=== PATIENT | male | born 1990 | race Caucasian/White ===

== ENCOUNTER 2019-12-08 14:21 | Inpatient (IN) | payer BC ==
[2019-12-08 15:17] LABS: Basophils # (A) 0.1 k/uL (0-0.2); Basophils % (A) 1 %; Eosinophils # (A) 0.5 k/uL (0-0.7); Eosinophils % (A) 5 %; HCT 48.6 % (39.0-53.0); HGB 16.2 gm/dL (13.0-17.5); Lymphocytes # (A) 2.3 k/uL (1.0-4.8); Lymphocytes % (A) 22 %; MCH 29.4 pg (25.0-35.0); MCHC 33.4 g/dL (31.0-37.0); MCV 88.1 fL (80.0-100.0); Mean Platelet Volume 7.9; Monocytes # (A) 0.6 k/uL (0-1.0); Monocytes % (A) 6 %; Neutrophils # (A) 6.7 k/uL (1.3-7.7); Neutrophils % (A) 66 %; Platelet Count 251 k/uL (150-450); RBC 5.52 m/uL (4.30-5.90); RDW 13.6 % (11.5-15.5); WBC 10.2 k/uL (3.8-10.6)
[2019-12-08 15:21] LABS: ALT 57 U/L (4-49); AST 53 U/L (17-59); African American GFR (CKD) >90 (>60 ml/min/1.73 sqM); Albumin 4.3 g/dL (3.5-5.0); Alkaline Phosphatase 48 U/L (38-126); Anion Gap 3 mmol/L; Blood Urea Nitrogen 16 mg/dL (9-20); C Reactive Protein 13.8 mg/L (<10.0); Calcium 9.4 mg/dL (8.4-10.2); Carbon Dioxide 24 mmol/L (22-30); Chloride 106 mmol/L (98-107); Glucose 99 mg/dL (74-99); LDH 756 U/L (313-618); Magnesium 1.9 mg/dL (1.6-2.3); Non-African American GFR(CKD) >90 (>60 ml/min/1.73 sqM); Potassium 4.3 mmol/L (3.5-5.1); Sodium 133 mmol/L (137-145); Total Bilirubin 1.1 mg/dL (0.2-1.3); Total Protein 7.1 g/dL (6.3-8.2)
[2019-12-08 15:28] LABS: INR 1.1 (<1.2); Partial Thromboplastin Time 22.8 sec (22.0-30.0); Prothrombin Time 10.9 sec (9.0-12.0)
[2019-12-08 15:34] LABS: D-Dimer 4.77 mg/L FEU (<0.60)
--- NOTE | 2019-12-08 15:39 | XR ---
EXAMINATION TYPE: XR chest 1V portable DATE OF EXAM: 12/08/2019 Comparison: 02/03/2016 Clinical History: 29-year-old male shortness of breath, Suspected COVID-19 pneumonia Findings: New mild to moderate cardiomegaly. There may be some accentuation due to AP portable technique. Mild interstitial change throughout. Limitation due to underpenetration from large patient body habitus. Impression: 1. New mild to moderate cardiomegaly. Heart size may be slightly accentuated due to AP portable techn ique. Further evaluation with cardiac echo should be considered. 2. Mild generalized interstitial change. Limited assessment due to underpenetration. Correlate to exc lude mild pulmonary vascular congestion or atypical pneumonia.
[2019-12-08] MEDS ORDERED: LABETALOL 5 MG/ML VIAL MDV IVP STA ×2 (15:45→17:06)
--- NOTE | 2019-12-08 16:26 | ED ---
SOB HPI - General Source: patient Mode of arrival: ambulatory Limitations: no limitations <Verónica Vail - Last Filed: 12/09/19 07:08> <Dunia Aguilar - Last Filed: 12/12/19 23:59> - General Chief Complaint: Shortness of Breath Stated Complaint: SOB Time Seen by Provider: 12/08/19 15:00 - History of Present Illness Initial Comments: Patient is a 29-year-old male, morbidly obese, uncontrolled hypertension, pr esenting to the emergency Department from urgent care via EMS for shortness of breath as well as a cough 2 weeks. Patient states he has issue with ALLERGIES and normally has an upper respiratory infection this time of the year. Patient denies having fever, chest pains. He states he has had a few vomiting episodes after coughing fits. He denies any nausea or abdominal pain at this time. Patient states he used to be on hypertensive medication a few years ago but stopped taking after he lost his insurance. He states he also used to take medication for anxiety. Patient does admit to being a one pack-a-day smoker as well as marijuana smoker. No other drug use. He has no other complaints at this time. Upon arrival to the ER, patient is afebrile, pulse is 124, blood pressure is 187/141, 95% on room air, 20 respiratory. (Verónica Vail) - Related Data Home Medications Medication Instructions Recorded Confirmed guaiFENesin [Mucinex] 1,200 mg PO Q12HR PRN 12/08/19 12/08/19 Previous Rx's Medication Instructions Recorded Furosemide [Lasix] 40 mg PO DAILY #30 tab 12/12/19 Hydrochlorothiazide [Hydrodiuril] 25 mg PO DAILY #30 tab 12/12/19 Isosorbide Mononitrate ER [Imdur] 60 mg PO DAILY #30 tab.er.24h 12/12/19 Levothyroxine Sodium [Synthroid] 75 mcg PO DAILY@0630 #30 tab 12/12/19 Losartan [Cozaar] 100 mg PO DAILY #60 tab 12/12/19 Metoprolol Tartrate [Lopressor] 100 mg PO BID #120 tab 12/12/19 Nicotine 14Mg/24Hr Patch [Habitrol] 1 patch TRANSDERM DAILY #30 patch 12/12/19 hydrALAZINE HCL [Apresoline] 100 mg PO TID #180 tab 12/12/19 Allergies Allergy/AdvReac Type Severity Reaction Status Date / Time No Known Allergies Allergy Verified 12/08/19 17:42 Review of Systems ROS Other: All systems not noted in ROS Statement are negative. <Verónica Vail - Last Filed: 12/09/19 07:08> ROS Other: All systems not noted in ROS Statement are negative. <Dunia Aguilar Sabina - Last Filed: 12/12/19 23:59> ROS Statement: Those systems with pertinent positive or pertinent negative responses have been documented in the HPI. Past Medical History Past Medical History: Hypertension History of Any Multi-Drug Resistant Organisms: None Reported Past Surgical History: No Surgical Hx Reported Past Psychological History: No Psychological Hx Reported Smoking Status: Current every day smoker Past Alcohol Use History: Occasional Past Drug Use History: None Reported - Past Family History Father Family Medical History: AICD/Pacemaker <Verónica Vail - Last Filed: 12/09/19 07:08> General Exam Limitations: no limitations <Verónica Vail - Last Filed: 12/09/19 07:08> - General Exam Comments Initial Comments: GENERAL: Morbidly obese, in no acute distress, mildly diaphoretic. HEAD: Atraumatic, normocephalic. EYES: Pupils equal round and reactive to light, extraocular movements intact, sclera anicteric, conjunctiva are normal. ENT: TMs normal, nares patent, oropharynx clear without exudates. Moist mucous membranes. NECK: Normal range of motion, supple without lymphadenopathy or JVD. LUNGS: Breath sounds clear to auscultation bilaterally and equal. No wheezes rales or rhonchi. HEART: Tachycardia rate and rhythm without murmurs, rubs or gallops. ABDOMEN: Soft, nontender, normoactive bowel sounds. No guarding, no rebound. No masses appreciated. : Deferred EXTREMITIES: Normal range of motion, no pitting or edema. No clubbing or cyanosis. NEUROLOGICAL: Cranial nerves II through XII grossly intact. Normal speech, normal gait. PSYCH: Normal mood, normal affect. SKIN: Warm, Dry, normal turgor, no rashes or lesions noted. (Verónica Vail) Course Vital Signs 12/08/19 12/08/19 12/08/19 14:38 14:42 16:23 Temperature 98.7 F Pulse Rate 124 H 110 H Respiratory 20 20 18 Rate Blood Pressure 187/141 165/132 O2 Sat by Pulse 95 95 Oximetry 12/08/19 12/08/19 12/08/19 16:47 18:05 18:54 Temperature Pulse Rate 101 H 97 102 H Respiratory 18 18 18 Rate Blood Pressure 158/113 160/116 145/100 O2 Sat by Pulse 95 94 L 94 L Oximetry 12/08/19 12/08/19 19:38 22:10 Temperature Pulse Rate 98 92 Respiratory 22 20 Rate Blood Pressure 155/112 144/107 O2 Sat by Pulse 95 95 Oximetry Procedures <Dunia Aguilar - Last Filed: 12/12/19 23:59> - Procedures Initial comment: Bedside cardiac ultrasound using cardiac probe in parasternal long axis and peristernal short axis demonstrates pericardial effusion, moderate without signs of tamponade. EF is severely reduced. (Dunia Aguilar) Medical Decision Making - Lab Data Result diagrams: 12/08/19 14:37 12/08/19 14:37 <Verónica Vail - Last Filed: 12/09/19 07:08> - Lab Data Result diagrams: 12/09/19 06:36 12/12/19 06:05 <Dunia Aguilar - Last Filed: 12/12/19 23:59> - Medical Decision Making Patient is a 29-year-old male presenting via EMS from urgent care for shortness of breath and tachycardia. He has history of uncontrolled hypertension, morbidly obese. Upon arrival to the ER he was tachycardic, hypertensive, mildly diaphoretic. EKG showed no signs of acute ischemia, tachycardia. He denied chest pain. Lab work reveals a d-dimer 4.77. Sodium 133, LDH was 756, CRP is 13, rapid Cochran as well as influenza were both negative. BNP is 5920. Troponin was elevated at 1.980. Given patient's positive d-dimer and tachycardia, CTA for PE was ordered. This reveals a large pericardial effusion, minimal right pleural effusion, groundglass opacities in the posterior right lung base. No evidence for acute PE. Case was discussed in detail with Dr. Aguilar. Dr. Aguilar spoke with nutrition specialist cardiothoracic, Dr. De Los Santos. Patient will be admitted and will have echo performed tomorrow. Patient was given single dose of 20 mg labetalol for blood pressure control. Patient's blood pressure did decrease slightly to 158/113, heart rate is 101. Patient has been comfortable in the room. He will be given first dose of azithromycin with concern for possible COVID even though rapid testing was negative today. Cardio and infectious disease will both be consulted. Patient was accepted by on-call, Dr. Collins. (Verónica Vail) I was available for consultation in the emergency department. The history and physical exam were done by the midlevel provider. [facility] I reviewed the case with the midlevel provider and based on their presentation of the patient, I agree with the assessment, medical decision making and plan of care as documented. The patient was evaluated by myself. Presented with shortness of breath and tachycardia from an urgent care. I performed a bedside cardiac ultrasound which demonstrated a moderate sized effusion without signs of tamponade. I discussed the results with Dr. De Los Santos who requested a formal echo. Trop elevated however will hold off on heparinizing the patient due to his pericardial effusion. I discussed the case with Dr. Valentine who accepted admission. Chart was dictated using [employer] dictation software. Attempts were made to correct any dictation errors however some typographical errors may persist. Patient was seen during a national state of emergency due to the Covid-19 pandemic. (Dunia Aguilar) - Lab Data Lab Results 12/08/19 12/08/19 12/08/19 Range/Units 14:37 14:37 14:37 WBC 10.2 (3.8-10.6) k/uL RBC 5.52 (4.30-5.90) m/uL Hgb 16.2 (13.0-17.5) gm/dL Hct 48.6 (39.0-53.0) % MCV 88.1 (80.0-100.0) fL MCH 29.4 (25.0-35.0) pg MCHC 33.4 (31.0-37.0) g/dL RDW 13.6 (11.5-15.5) % Plt Count 251 (150-450) k/uL Neutrophils % 66 % Lymphocytes % 22 % Monocytes % 6 % Eosinophils % 5 % Basophils % 1 % Neutrophils # 6.7 (1.3-7.7) k/uL Lymphocytes # 2.3 (1.0-4.8) k/uL Monocytes # 0.6 (0-1.0) k/uL Eosinophils # 0.5 (0-0.7) k/uL Basophils # 0.1 (0-0.2) k/uL PT 10.9 (9.0-12.0) sec INR 1.1 (<1.2) APTT 22.8 (22.0-30.0) sec D-Dimer 4.77 H (<0.60) mg/L FEU Sodium 133 L (137-145) mmol/L Potassium 4.3 (3.5-5.1) mmol/L Chloride 106 (98-107) mmol/L Carbon Dioxide 24 (22-30) mmol/L Anion Gap 3 mmol/L BUN 16 (9-20) mg/dL Creatinine 0.87 (0.66-1.25) mg/dL Est GFR (CKD-EPI)AfAm >90 (>60 ml/min/1.73 sqM) Est GFR (CKD-EPI)NonAf >90 (>60 ml/min/1.73 sqM) Glucose 99 (74-99) mg/dL Estimated Ave Glu mg/dL Hemoglobin A1c (4.0-6.0) % Plasma Lactic Acid Ángel (0.7-2.0) mmol/L Calcium 9.4 (8.4-10.2) mg/dL Magnesium 1.9 (1.6-2.3) mg/dL Ferritin 145.7 (22.0-322.0) ng/mL Total Bilirubin 1.1 (0.2-1.3) mg/dL AST 53 (17-59) U/L ALT 57 H (4-49) U/L Alkaline Phosphatase 48 (38-126) U/L Lactate Dehydrogenase 756 H (313-618) U/L Troponin I (0.000-0.034) ng/mL C-Reactive Protein 13.8 H (<10.0) mg/L NT-Pro-B Natriuret Pep pg/mL Total Protein 7.1 (6.3-8.2) g/dL Albumin 4.3 (3.5-5.0) g/dL Procalcitonin (0.02-0.09) ng/mL Coronavirus (PCR) (Not Detectd) Influenza Type A RNA (Not Detectd) Influenza Type B (PCR) (Not Detectd) 12/08/19 12/08/19 12/08/19 Range/Units 14:37 14:37 14:37 WBC (3.8-10.6) k/uL RBC (4.30-5.90) m/uL Hgb (13.0-17.5) gm/dL Hct (39.0-53.0) % MCV (80.0-100.0) fL MCH (25.0-35.0) pg MCHC (31.0-37.0) g/dL RDW (11.5-15.5) % Plt Count (150-450) k/uL Neutrophils % % Lymphocytes % % Monocytes % % Eosinophils % % Basophils % % Neutrophils # (1.3-7.7) k/uL Lymphocytes # (1.0-4.8) k/uL Monocytes # (0-1.0) k/uL Eosinophils # (0-0.7) k/uL Basophils # (0-0.2) k/uL PT (9.0-12.0) sec INR (<1.2) APTT (22.0-30.0) sec D-Dimer (<0.60) mg/L FEU Sodium (137-145) mmol/L Potassium (3.5-5.1) mmol/L Chloride (98-107) mmol/L Carbon Dioxide (22-30) mmol/L Anion Gap mmol/L BUN (9-20) mg/dL Creatinine (0.66-1.25) mg/dL Est GFR (CKD-EPI)AfAm (>60 ml/min/1.73 sqM) Est GFR (CKD-EPI)NonAf (>60 ml/min/1.73 sqM) Glucose (74-99) mg/dL Estimated Ave Glu mg/dL 103 Hemoglobin A1c 5.2 (4.0-6.0) % Plasma Lactic Acid Ángel 1.2 (0.7-2.0) mmol/L Calcium (8.4-10.2) mg/dL Magnesium (1.6-2.3) mg/dL Ferritin (22.0-322.0) ng/mL Total Bilirubin (0.2-1.3) mg/dL AST (17-59) U/L ALT (4-49) U/L Alkaline Phosphatase (38-126) U/L Lactate Dehydrogenase (313-618) U/L Troponin I (0.000-0.034) ng/mL C-Reactive Protein (<10.0) mg/L NT-Pro-B Natriuret Pep pg/mL Total Protein (6.3-8.2) g/dL Albumin (3.5-5.0) g/dL Procalcitonin 0.07 (0.02-0.09) ng/mL Coronavirus (PCR) (Not Detectd) Influenza Type A RNA (Not Detectd) Influenza Type B (PCR) (Not Detectd) 12/08/19 12/08/19 12/08/19 Range/Units 15:01 15:01 17:31 WBC (3.8-10.6) k/uL RBC (4.30-5.90) m/uL Hgb (13.0-17.5) gm/dL Hct (39.0-53.0) % MCV (80.0-100.0) fL MCH (25.0-35.0) pg MCHC (31.0-37.0) g/dL RDW (11.5-15.5) % Plt Count (150-450) k/uL Neutrophils % % Lymphocytes % % Monocytes % % Eosinophils % % Basophils % % Neutrophils # (1.3-7.7) k/uL Lymphocytes # (1.0-4.8) k/uL Monocytes # (0-1.0) k/uL Eosinophils # (0-0.7) k/uL Basophils # (0-0.2) k/uL PT (9.0-12.0) sec INR (<1.2) APTT (22.0-30.0) sec D-Dimer (<0.60) mg/L FEU Sodium (137-145) mmol/L Potassium (3.5-5.1) mmol/L Chloride (98-107) mmol/L Carbon Dioxide (22-30) mmol/L Anion Gap mmol/L BUN (9-20) mg/dL Creatinine (0.66-1.25) mg/dL Est GFR (CKD-EPI)AfAm (>60 ml/min/1.73 sqM) Est GFR (CKD-EPI)NonAf (>60 ml/min/1.73 sqM) Glucose (74-99) mg/dL Estimated Ave Glu mg/dL Hemoglobin A1c (4.0-6.0) % Plasma Lactic Acid Ángel (0.7-2.0) mmol/L Calcium (8.4-10.2) mg/dL Magnesium (1.6-2.3) mg/dL Ferritin (22.0-322.0) ng/mL Total Bilirubin (0.2-1.3) mg/dL AST (17-59) U/L ALT (4-49) U/L Alkaline Phosphatase (38-126) U/L Lactate Dehydrogenase (313-618) U/L Troponin I (0.000-0.034) ng/mL C-Reactive Protein (<10.0) mg/L NT-Pro-B Natriuret Pep 5920 pg/mL Total Protein (6.3-8.2) g/dL Albumin (3.5-5.0) g/dL Procalcitonin (0.02-0.09) ng/mL Coronavirus (PCR) Not Detected (Not Detectd) Influenza Type A RNA Not Detected (Not Detectd) Influenza Type B (PCR) Not Detected (Not Detectd) 12/08/19 Range/Units 17:45 WBC (3.8-10.6) k/uL RBC (4.30-5.90) m/uL Hgb (13.0-17.5) gm/dL Hct (39.0-53.0) % MCV (80.0-100.0) fL MCH (25.0-35.0) pg MCHC (31.0-37.0) g/dL RDW (11.5-15.5) % Plt Count (150-450) k/uL Neutrophils % % Lymphocytes % % Monocytes % % Eosinophils % % Basophils % % Neutrophils # (1.3-7.7) k/uL Lymphocytes # (1.0-4.8) k/uL Monocytes # (0-1.0) k/uL Eosinophils # (0-0.7) k/uL Basophils # (0-0.2) k/uL PT (9.0-12.0) sec INR (<1.2) APTT (22.0-30.0) sec D-Dimer (<0.60) mg/L FEU Sodium (137-145) mmol/L Potassium (3.5-5.1) mmol/L Chloride (98-107) mmol/L Carbon Dioxide (22-30) mmol/L Anion Gap mmol/L BUN (9-20) mg/dL Creatinine (0.66-1.25) mg/dL Est GFR (CKD-EPI)AfAm (>60 ml/min/1.73 sqM) Est GFR (CKD-EPI)NonAf (>60 ml/min/1.73 sqM) Glucose (74-99) mg/dL Estimated Ave Glu mg/dL Hemoglobin A1c (4.0-6.0) % Plasma Lactic Acid Ángel (0.7-2.0) mmol/L Calcium (8.4-10.2) mg/dL Magnesium (1.6-2.3) mg/dL Ferritin (22.0-322.0) ng/mL Total Bilirubin (0.2-1.3) mg/dL AST (17-59) U/L ALT (4-49) U/L Alkaline Phosphatase (38-126) U/L Lactate Dehydrogenase (313-618) U/L Troponin I 1.980 H* (0.000-0.034) ng/mL C-Reactive Protein (<10.0) mg/L NT-Pro-B Natriuret Pep pg/mL Total Protein (6.3-8.2) g/dL Albumin (3.5-5.0) g/dL Procalcitonin (0.02-0.09) ng/mL Coronavirus (PCR) (Not Detectd) Influenza Type A RNA (Not Detectd) Influenza Type B (PCR) (Not Detectd) - EKG Data EKG Comments: Ventricular rate 119, CT interval 136, and QTc 481, sinus tach, no acute ST segment changes, no signs of ischemia. (Verónica Vail) Disposition Is patient prescribed a controlled substance at d/c from ED?: No Decision Date: 12/08/19 Decision Time: 17:38 <Verónica Vail - Last Filed: 12/09/19 07:08> <Dunia Aguilar - Last Filed: 12/12/19 23:59> Clinical Impression: Dyspnea, Pericardial effusion, Elevated troponin Disposition: ADMITTED IP TO THIS HOSP Condition: Stable
--- NOTE | 2019-12-08 16:48 | CT ---
CT CHEST FOR PULMONARY EMBOLISM. EXAMINATION TYPE: CT chest angio for PE DATE OF EXAM: 12/08/2019 INDICATION: Shortness of breath and HTN. CT DLP: 1242.3 mGycm, Automated exposure control for dose reduction was used. CONTRAST: Patient injected with 100 mL of Isovue 300. COMPARISON: None TECHNIQUE: CT of the chest is performed on a spiral scan at 2 mm thick sections. Study is performed with intravenous contrast timed for evaluation for pulmonary embolism. This will limit additional po rtions of the evaluation. 3-D MIP images reconstructed by the technologist are reviewed on the compu ter in the coronal and sagittal planes. FINDINGS: No persistent filling defects are evident to suggest an acute pulmonary embolism. Shotty lymphadenopathy is within the mediastinum. The ascending aorta diameter at the level of the m ain pulmonary artery is 4.0 cm. The main pulmonary artery diameter at the bifurcation is 3.7 cm. There is a large pericardial effusion. Some minimal groundglass opacities are at the lung bases within the lingula near the costophrenic ang le and in the posterior right lung base. Very small right pleural effusion is present Limited CT section through the upper abdomen are unremarkable. IMPRESSIONS: 1. Large pericardial effusion. 2. Minimal right pleural effusion. 3. Minimal groundglass opacities at the lateral lingula and posterior right lung base. 4. No acute pulmonary embolism.
[2019-12-08] MEDS ORDERED: AZITHROMYCIN 500 MG TAB PO STA (17:43)
[2019-12-09 04:08] LABS: Hemoglobin A1C 5.2 % (4.0-6.0)
[2019-12-09 04:20] LABS: Ferritin 145.7 ng/mL (22.0-322.0)
[2019-12-09] MEDS ORDERED: amLODIPine 5 MG TAB PO STA (05:26)
[2019-12-09 08:01] LABS: ALT 53 U/L (4-49); AST 36 U/L (17-59); African American GFR (CKD) >90 (>60 ml/min/1.73 sqM); Alkaline Phosphatase 43 U/L (38-126); Anion Gap 10 mmol/L; Blood Urea Nitrogen 15 mg/dL (9-20); Calcium 9.3 mg/dL (8.4-10.2); Carbon Dioxide 22 mmol/L (22-30); Chloride 106 mmol/L (98-107); Cholesterol 94 mg/dL (<200); Glucose 83 mg/dL (74-99); HDL Cholesterol 23 mg/dL (40-60); LDL Cholesterol,Calculated 56 mg/dL (0-99); Non-African American GFR(CKD) >90 (>60 ml/min/1.73 sqM); Potassium 4.6 mmol/L (3.5-5.1); Sodium 138 mmol/L (137-145); Total Bilirubin 1.1 mg/dL (0.2-1.3); Total Protein 6.6 g/dL (6.3-8.2); Triglycerides 74 mg/dL (<150)
[2019-12-09 08:04] LABS: Basophils % (A) 0 %; Eosinophils # (A) 0.3 k/uL (0-0.7); Eosinophils % (A) 4 %; HCT 46.5 % (39.0-53.0); HGB 15.3 gm/dL (13.0-17.5); Lymphocytes # (A) 2.2 k/uL (1.0-4.8); Lymphocytes % (A) 29 %; MCH 29.3 pg (25.0-35.0); MCHC 32.8 g/dL (31.0-37.0); MCV 89.3 fL (80.0-100.0); Mean Platelet Volume 8.4; Monocytes # (A) 0.4 k/uL (0-1.0); Monocytes % (A) 6 %; Neutrophils # (A) 4.5 k/uL (1.3-7.7); Neutrophils % (A) 60 %; Platelet Count 245 k/uL (150-450); RBC 5.21 m/uL (4.30-5.90); RDW 13.8 % (11.5-15.5); WBC 7.5 k/uL (3.8-10.6)
--- NOTE | 2019-12-09 08:47 | ECHOF ---
Referral Reason:dyspnea, pericardial effusion MEASUREMENTS -------- HEIGHT: 193.0 cm WEIGHT: 219.1 kg BP: 164/102 RVIDd: 4.6 cm (< 3.3) IVSd: 1.1 cm (0.6 - 1.1) LVIDd: 7.4 cm (3.9 - 5.3) LVPWd: 1.4 cm (0.6 - 1.1) IVSs: 1.2 cm LVIDs: 6.5 cm LVPWs: 1.8 cm LAESV Index (A-L): 47.79 ml/m Ao Diam: 3.7 cm (2.0 - 3.7) AV Cusp: 2.7 cm (1.5 - 2.6) MV EXCURSION: 17.180 mm (> 18.000) MV EF SLOPE: 87 mm/s (70 - 150) EPSS: 2.3 cm FINDINGS -------- Sinus rhythm. This was a technically difficult study with suboptimal views. The left ventricle is severely dilated. There is mild concentric left ventricular hypertrophy. Th ere is severe global hypokinesis of LV . Overall left ventricular systolic function is severely imp aired with, an EF between 20 - 25 %. The right ventricle is moderate to severely enlarged. The right ventricular systolic function is m oderately impaired. LA is severely dilated >40 ml/m2 The right atrium was not well visualized. 5.0mg of Lumason was utilized for enhancement of images The aortic valve was not well visualized. There is no evidence of aortic regurgitation. There is no evidence of aortic stenosis. [id number] mitral regurgitation is present. Mild tricuspid regurgitation present. Unable to estimate RVSP due to inadequate TR jet spectral dop pler profile. The pulmonic valve was not well visualized. There is no pulmonic regurgitation present. The aortic root size is normal. The inferior vena cava is moderately dilated. There is a moderate, generalized pericardial effusion present. There is no evidence of cardiac tamp onade. CONCLUSIONS -------- 1. The left ventricle is severely dilated. 2. There is mild concentric left ventricular hypertrophy. 3. There is severe global hypokinesis of LV . 4. Overall left ventricular systolic function is severely impaired with, an EF between 20 - 25 %. 5. The right ventricle is moderate to severely enlarged. 6. The right ventricular systolic function is moderately impaired. 7. LA is severely dilated >40 ml/m2 8. The right atrium was not well visualized. 9. 5.0mg of Lumason was utilized for enhancement of images 10. The aortic valve was not well visualized. 11. [id number] mitral regurgitation is present. 12. Mild tricuspid regurgitation present. 13. The inferior vena cava is moderately dilated. 14. There is a moderate, generalized pericardial effusion present. 15. There is no evidence of cardiac tamponade. [employer]: Angeles Maguire RDCS
[2019-12-09] MEDS ORDERED: ASPIRIN 325 MG TAB PO SCH (09:00)
[2019-12-09] MEDS: METOPROLOL TARTRATE 50 MG TAB PO SCH ×2 (09:08→22:11)
[2019-12-09] MEDS: LOSARTAN 50 MG TAB PO SCH ×2 (09:08→09:30)
[2019-12-09] MEDS: HEPARIN SODIUM,PORCINE 5,000 UNIT/ML 1 ML VIAL SQ SCH (09:08)
[2019-12-09] MEDS: FUROSEMIDE 40 MG TAB PO SCH (09:08)
[2019-12-09] MEDS: hydrALAZINE HCL 50 MG TAB PO SCH ×3 (09:08→22:11)
[2019-12-09] MEDS: amLODIPine 5 MG TAB PO SCH ×2 (09:08→09:09)
--- NOTE | 2019-12-09 09:10 | P.GSCN ---
History of Present Illness Consult date: 12/09/19 Reason for Consult: Large pericardial effusion on CAT scan Requesting physician: Verónica Vail History of present illness: This is a 29-year-old active gentleman who does not follow with a primary care physician on an outpatient basis. He has a previous medical history of hypertension, morbid obesity, current tobacco dependence, occasional marijuana use, family history of premature coronary artery disease. He was previously on anti-hypertensives but lost his health insurance and quit taking his medications. He presented to [facility] emergency room last night with complaints of shortness of breath and loose productive cough for approximately 2 weeks. Denies any fever, nausea, vomiting, chest pain. He does endorse occasional dizziness. He states he did take some Mucinex, he had a coughing fit and subsequently felt a little bit better. His father was concerned for Covid however, and he presented to [facility]. He was found to be hypertensive and sent to [facility] emergency room for further evaluation and treatment. Chest x-ray demonstrated new cardiomegaly, mild interstitial changes. Labs were essentially normal except d-dimer 4.77, ALT 57, troponins 1.98 trending down to 1.33, and BNP 5920. Procalcitonin was negative. Rapid coronavirus PCR was sent and was negative. Chest CTA was completed demonstrating no PE but large pericardial effusion was read by the radiologist. The patient was admitted for evaluation and treatment with consultation placed for Dr. De Los Santos from cardiothoracic surgery, cardiology, and infectious disease. An echocardiogram was ordered. Review of Systems Review of systems was completed and was negative except as noted. - Respiratory Reports as per HPI, Reports congestion, Reports cough, Reports cough with sputum, Reports dyspnea Past Medical History Past Medical History: Hypertension Additional Past Medical History / Comment(s): Morbid obesity History of Any Multi-Drug Resistant Organisms: None Reported Past Surgical History: No Surgical Hx Reported Past Psychological History: No Psychological Hx Reported Additional Psychological History / Comment(s): smokes 1 pk/day since 15 years old, uses marijuana once weekly Smoking Status: Current every day smoker Past Alcohol Use History: None Reported Past Drug Use History: Marijuana - Past Family History Father Family Medical History: AICD/Pacemaker, Myocardial Infarction ([place]) Additional Family Medical History / Comment(s): father had [place] at 49 years old Mother Family Medical History: No Reported History Additional Family Medical History / Comment(s): patient unsure of his mothers history Medications and Allergies Home Medications Medication Instructions Recorded Confirmed Type guaiFENesin [Mucinex] 1,200 mg PO Q12HR PRN 12/08/19 12/08/19 History Allergies Allergy/AdvReac Type Severity Reaction Status Date / Time No Known Allergies Allergy Verified 12/08/19 17:42 Surgical - Exam Vital Signs Temp Pulse Resp BP Pulse Ox 98.7 F 124 H 20 187/141 95 12/08/19 14:38 12/08/19 14:38 12/08/19 14:38 12/08/19 14:38 12/08/19 14:38 - General well developed, well nourished, no distress, no pain, obese - Eyes PERRL, normal ocular movement - ENT no hearing loss - Neck no masses, no bruits, trachea midline - Respiratory Lung sounds diminished bilaterally. Respirations even, non-labored. Currently on room air with oxygen saturation 95%. - Cardiovascular S1/S2 present, no murmur, no distant heart tones. Tachycardic but regular rate and rhythm, sinus tach on telemetry with rate in low 100s. Palpable pulses peripherally. No edema present. No calf pain or tenderness noted. - Abdomen Abdomen: soft, non tender, bowel sounds - Genitourinary deferred - Rectum deferred - Integumentary multiple tattoos on upper extremities no rash, no growths - Neurologic normal coordination, normal sensation - Musculoskeletal normal gait, normal posture - Psychiatric oriented to time, oriented to person, oriented to place, speech is normal, memory intact Results - Labs 12/09/19 06:36 12/09/19 06:36 Abnormal Lab Results - Last 24 Hours (Table) 12/08/19 12/08/19 12/08/19 Range/Units 14:37 14:37 17:45 D-Dimer 4.77 H (<0.60) mg/L FEU Sodium 133 L (137-145) mmol/L ALT 57 H (4-49) U/L Lactate Dehydrogenase 756 H (313-618) U/L Troponin I 1.980 H* (0.000-0.034) ng/mL C-Reactive Protein 13.8 H (<10.0) mg/L HDL Cholesterol (40-60) mg/dL 12/08/19 12/09/19 12/09/19 Range/Units 23:21 06:36 06:36 D-Dimer 3.17 H (<0.60) mg/L FEU Sodium (137-145) mmol/L ALT 53 H (4-49) U/L Lactate Dehydrogenase (313-618) U/L Troponin I 1.330 H* (0.000-0.034) ng/mL C-Reactive Protein (<10.0) mg/L HDL Cholesterol 23 L (40-60) mg/dL Diabetes panel 12/08/19 12/08/19 12/09/19 Range/Units 14:37 14:37 06:36 Sodium 133 L 138 (137-145) mmol/L Potassium 4.3 4.6 (3.5-5.1) mmol/L Chloride 106 106 (98-107) mmol/L Carbon Dioxide 24 22 (22-30) mmol/L BUN 16 15 (9-20) mg/dL Creatinine 0.87 0.83 (0.66-1.25) mg/dL Glucose 99 83 (74-99) mg/dL Hemoglobin A1c 5.2 (4.0-6.0) % Calcium 9.4 9.3 (8.4-10.2) mg/dL AST 53 36 (17-59) U/L ALT 57 H 53 H (4-49) U/L Alkaline Phosphatase 48 43 (38-126) U/L Total Protein 7.1 6.6 (6.3-8.2) g/dL Albumin 4.3 4.0 (3.5-5.0) g/dL Triglycerides 74 (<150) mg/dL HDL Cholesterol 23 L (40-60) mg/dL Calcium panel 12/08/19 12/09/19 Range/Units 14:37 06:36 Calcium 9.4 9.3 (8.4-10.2) mg/dL Albumin 4.3 4.0 (3.5-5.0) g/dL Pituitary panel 12/08/19 12/09/19 Range/Units 14:37 06:36 Sodium 133 L 138 (137-145) mmol/L Potassium 4.3 4.6 (3.5-5.1) mmol/L Chloride 106 106 (98-107) mmol/L Carbon Dioxide 24 22 (22-30) mmol/L BUN 16 15 (9-20) mg/dL Creatinine 0.87 0.83 (0.66-1.25) mg/dL Glucose 99 83 (74-99) mg/dL Calcium 9.4 9.3 (8.4-10.2) mg/dL Adrenal panel 12/08/19 12/09/19 Range/Units 14:37 06:36 Sodium 133 L 138 (137-145) mmol/L Potassium 4.3 4.6 (3.5-5.1) mmol/L Chloride 106 106 (98-107) mmol/L Carbon Dioxide 24 22 (22-30) mmol/L BUN 16 15 (9-20) mg/dL Creatinine 0.87 0.83 (0.66-1.25) mg/dL Glucose 99 83 (74-99) mg/dL Calcium 9.4 9.3 (8.4-10.2) mg/dL Total Bilirubin 1.1 1.1 (0.2-1.3) mg/dL AST 53 36 (17-59) U/L ALT 57 H 53 H (4-49) U/L Alkaline Phosphatase 48 43 (38-126) U/L Total Protein 7.1 6.6 (6.3-8.2) g/dL Albumin 4.3 4.0 (3.5-5.0) g/dL - Imaging Chest x-ray: report reviewed, image reviewed CT scan - chest: report reviewed, image reviewed EKG: image reviewed Assessment and Plan Assessment: 1. Large pericardial effusion on CT scan 2. Hypertension 3. Current tobacco dependence 4. Morbid obesity 5. Family history of premature CAD Plan: The patient was seen and examined at the bedside. Chart/diagnostics were reviewed. The case was discussed in detail with Dr. De Los Santos. At this time we wait for echocardiogram results to determine treatment. Dr. Martinez will be here today to see patient and review echocardiogram. The patient is in no distress, he is not hypotensive and barely tachycardic, suggesting no compromise from effusion. Recommend controlling blood pressure. Medical management of other comorbidities per primary care and cardiology. Thank you for this consult. Please call us with further questions. Time with Patient: Greater than 30
--- NOTE | 2019-12-09 09:39 | CONS ---
CONSULTATION Roland Duffy is a 29-year-old morbidly obese gentleman who was admitted through the emergency room yesterday. He came in because of shortness of breath, upper respiratory tract type infection with coughing bouts and when he presented to the ER, he had uncontrolled hypertension. He is known to have hypertension, but has not taken any medications. He smokes one pack a day. He uses marijuana. He last saw a doctor over a year ago when he was hospitalized in [facility] and was told that he had a problem with his heart with inflammation. He was also advised he had hypertension and to follow up but he has never seen a physician because of insurance reasons. After he came into the emergency room, his pressure was quite elevated. His D-dimer was elevated. He went on to have a CT angio which did not reveal pulmonary embolism but instead revealed what was reported as a large pericardial effusion. He also had some ground-glass appearance in the lateral lingula as well. I was asked to see him mostly because of his pericardial effusion. At the time of my evaluation, patient is sitting down. He is about 220 kg on an average. His BMI is more than 58. He has a troponin that is up to 1.9, now it is coming down to 1.3. His BNP is nearly 6000. His D-dimer is 3.17. He indicates to me that he was short of breath and coughing and therefore he came to the hospital. He is fully aware of the fact he has hypertension has not taken medications. He smokes at least a pack a day and also has been using marijuana and also alcohol occasionally. At the time of my evaluation, he is not in any significant distress. PAST MEDICAL HISTORY: 1. The patient tells me that he was hospitalized in [place], [place] with what seems to be some inflammation of the heart. Details unavailable. 2. Hypertension. He knows he has hypertension but has not taken medications for insurance reasons. 3. Smoking and COPD. 4. Morbid obesity. 5. Probable sleep apnea syndrome without established diagnosis. MEDICATIONS: He takes a Mucinex occasionally orally. ALLERGIES: None. REVIEW OF SYSTEMS: Remarkable for exertional shortness of breath, snoring, palpitations. No syncope. No chest discomfort. Progressively increasing shortness of breath and some weight gain. PHYSICAL EXAMINATION: On examination, blood pressure is 160/100, pulse rate is 104 per minute. HEENT: Unremarkable. Fundus was not examined by me. Neck is supple. There is JVD of at least 1 cm. No carotid bruit. Heart exam reveals S1, S2 with tachycardia. Lungs reveal bilateral scattered rhonchi. Abdomen is soft, nontender. Lower extremities reveal diminished pulses with bilateral mild to moderate edema. Central nervous system is grossly within normal limits without focal deficits. A detailed exam was not performed. EKG revealed sinus tachycardia with evidence of LVH by voltage criteria and nonspecific ST abnormality, poor R-wave progression. Echocardiogram that was performed today revealed ejection fraction of 20% to 25% with severely dilated left ventricle, global hypokinesia. The right ventricle is also enlarged with impairment. Picture suggests dilated cardiomyopathy. The valvular structures were poorly seen and right-sided pressures were not easily obtained. There is a moderate generalized pericardial effusion without evidence of tamponade. IMPRESSION: 1. Probable nonischemic cardiomyopathy. 2. Moderate pericardial effusion, not affecting cardiac performance. 3. Morbid obesity. 4. Smoking and marijuana use. 5. Known episode of URI and possible perimyocarditis a year ago, details unavailable. 6. Probable sleep apnea syndrome. 7. Uncontrolled hypertension. RECOMMENDATIONS: We will optimize his BP control, place him on a combination of beta princess, losartan, and hydralazine. I will also add Colcrys 0.6 mg b.i.d. Elevated troponin may be related to his underlying cardiomyopathy type picture. I will first stabilize him and then consider cardiac catheterization as an outpatient. I advised the patient the importance of quitting smoking and marijuana. He will also need a full evaluation including sleep study as an outpatient. Prognosis remains poor. Discussed this with the patient at length. Thank you very much for the consult. MMODL / IJN: [id number] /
[2019-12-09] MEDS ORDERED: LORazepam 0.5 MG TAB PO PRN (12:35)
[2019-12-09] MEDS: COLCHICINE 0.6 MG EACH PO SCH ×2 (13:07→22:11)
[2019-12-09] MEDS: NICOTINE 14MG/24HR PATCH TRANSDERM SCH (13:07)
--- NOTE | 2019-12-09 16:15 | HP ---
HISTORY AND PHYSICAL A 29-year-old white male, morbidly obese, says he was seen here at the hospital a year ago with the similar pain with chronic sinusitis, asthma exacerbation, secondary to a virus. He was found to have some chest pain, negative COVID testing which is going to be repeated and chest pain. CAT scan shows a large pleural effusion for which he was brought in to the hospital. He is a smoker. We are going to put him on nicotine patch. His vital signs were reviewed. He has blood pressure elevation, 180s/140s in the ER, O2 is 95 on room air, respiratory rate is 18-20, pulse is 124. HOME MEDICINES: [place]. ALLERGIES: No known drug allergies. 14 POINT REVIEW OF SYSTEMS: Negative except for as mentioned in HPI. No fevers. No chills. PAST MEDICAL HISTORY: Hypertension. Current everyday smoker. He is obese. FAMILY HISTORY: Pacemaker in a dad. PHYSICAL EXAM: Vital signs are stable. Afebrile. CARDIOVASCULAR: S1, S2. LUNGS: Show decreased breath sounds. ABDOMEN: Distended due to obesity. ENDOCRINE: BMI well over 50. NEUROLOGIC: Alert orient x3. PSYCH: Fair mood and affect. SKIN: Warm and dry. Temperature 99.7, pulse is 110-124, respiratory 18-20, blood pressure is 160s to 180s/130s to 140s, O2 is 94-96. Assessment uncontrolled hypertension, morbidly obese, tachycardia, pericardial effusion, new onset. Possible viral syndrome. Influenza cultures negative. We will get a repeat that. PE was ruled out on CAT scan of the chest. Dr. De Los Santos for surgeon for the chest is consulted possibly for pericardial window. Continue current treatment. BP coli test. Infectious Disease consult is pending as well as cardiology consult. There is no ischemia on the EKG and elevated troponin. Cardiology consult is secondary to pericardial effusion. MMODL / IJN: [id number] /
[2019-12-10] MEDS ORDERED: hydrALAZINE HCL 20 MG/ML 1 ML VIAL IVP PRN (00:16)
[2019-12-10] MEDS: HEPARIN SODIUM,PORCINE 5,000 UNIT/ML 1 ML VIAL SQ SCH ×4 (00:27→23:23)
--- NOTE | 2019-12-10 00:47 | P.CONS ---
History of Present Illness - Reason for Consult Consult date: 12/09/19 pericardial effusion Requesting physician: Yoan Collins - Chief Complaint shortness of breath x 2 weeks - History of Present Illness Patient is 29-year-old morbidly obese male with a past medical significant for hypertension presenting to the ER from the urgent care via EMS for increasing shortness of breath and cough that has been going on for about 2 weeks the patient denies having any fever or chills no chest pain apparently the patient did have a cough which has been moderate intensity and did have an episode of vomiting with the coughing fits but denies any abdominal pain or diarrhea with the symptom the patient was evaluated [facility] ER for further management on arrival to the ER the patient did have a chest x-ray which issues new mild to moderate cardiomegaly and mild generalized interstitial changes patient did have a CT angiogram which shows large pericardial effusion shotty lymphadenopathy within the mediastinum and groundglass opacity of the lung bases patient also have a echocardiogram which confirmed the pericardial effusion and limiting his left ventricle severely dilated patient has been followed by cardiology and CT surgery currently being treated with colchicine for presumed viral pericarditis infectious was consulted for further management and need for antibiotic or antiviral therapy, patient since presentation to the hospital has been afebrile patient did have a normal white count with no lymphopenia d-dimer mildly elevated troponin also elevated CRP of 13.8 blood cultures 0.07 normal LDH was mildly elevated patient did have a COVID-19 testing x2 which were negative influenza PCR was negative. At the time of my evaluation this afternoon patient is already feeling better his breathing has improved chest pain has decreased intensity no nausea no vomiting no diarrhea Review of Systems Positive point has been mentioned in HPI rest of the systems are negative Past Medical History Past Medical History: Hypertension Additional Past Medical History / Comment(s): Morbid obesity History of Any Multi-Drug Resistant Organisms: None Reported Past Surgical History: No Surgical Hx Reported Past Psychological History: No Psychological Hx Reported Additional Psychological History / Comment(s): smokes 1 pk/day since 15 years old, uses marijuana once weekly Smoking Status: Current every day smoker Past Alcohol Use History: None Reported Past Drug Use History: Marijuana - Past Family History Father Family Medical History: AICD/Pacemaker, Myocardial Infarction ([place]) Additional Family Medical History / Comment(s): father had [place] at 49 years old Mother Family Medical History: No Reported History Additional Family Medical History / Comment(s): patient unsure of his mothers history Medications and Allergies Home Medications Medication Instructions Recorded Confirmed Type guaiFENesin [Mucinex] 1,200 mg PO Q12HR PRN 12/08/19 12/08/19 History Allergies Allergy/AdvReac Type Severity Reaction Status Date / Time No Known Allergies Allergy Verified 12/08/19 17:42 Physical Exam Vitals: Vital Signs Temp Pulse Resp BP Pulse Ox 12/09/19 21:35 98.4 F 100 20 158/104 96 12/09/19 16:00 107 H 19 158/108 95 12/09/19 12:00 98.7 F 115 H 20 154/106 95 12/09/19 08:00 98.7 F 110 H 20 173/117 97 12/09/19 04:00 97.0 F L 104 H 20 164/102 95 12/09/19 01:46 98.1 F 103 H 22 162/110 95 12/09/19 00:00 108 H 22 Intake and Output 12/09/19 12/09/19 12/10/19 14:59 22:59 06:59 Intake Total 100 Balance 100 Intake: Oral 100 Other: # Voids 2 2 GENERAL DESCRIPTION: Middle-aged male lying in bed, no distress. No tachypnea or accessory muscle of respiration use. HEENT: Shows Pallor , no scleral icterus. Oral mucous membrane is dry. NECK: Trachea central, no thyromegaly. LUNGS: Unlabored breathing. Decreased breath sounds at bases. No wheeze or crackle. HEART: S1, S2, regular rate and rhythm. ABDOMEN: Soft, no tenderness , guarding or rigidity EXTREMITIES: No edema of feet. SKIN: No rash, no masses palpable. NEUROLOGICAL: The patient is awake, alert, oriented x3, mood and affect normal. Results CBC & Chem 7: 12/09/19 06:36 12/09/19 06:36 Labs: Abnormal Lab Results - Last 24 Hours (Table) 12/08/19 12/09/19 12/09/19 Range/Units 23:21 06:36 06:36 D-Dimer 3.17 H (<0.60) mg/L FEU ALT 53 H (4-49) U/L Troponin I 1.330 H* (0.000-0.034) ng/mL HDL Cholesterol 23 L (40-60) mg/dL Microbiology - Last 24 Hours (Table) 12/08/19 14:37 Blood Culture - Preliminary Blood No Growth after 24 hours Assessment and Plan Assessment: 1-patient presented to the hospital with increasing shortness of breath and cough and this patient noticed to have large pericardial effusion with mild elevated troponin likely representing however pericarditis the more common viral etiologies are coxsackie a and B viruses, and treatment is usually supportive and no need for any antiviral therapy (1) Pericardial effusion Current Visit: Yes Status: Acute Code(s): I31.3 - PERICARDIAL EFFUSION (NONINFLAMMATORY) SNOMED Code(s): 524329576 (2) Viral pericarditis Current Visit: Yes Status: Acute Code(s): B33.23 - VIRAL PERICARDITIS SNOMED Code(s): 89123410 Plan: 1-continue with colchicine been started by cardiology services 2-if the patient spike any fever or any changes in clinical condition appropriate cultures will be obtained before starting him on antibiotic therapy We will follow on clinical condition and cultures to further adjust medication if needed Thank you for this consultation we will follow the patient along with you Time with Patient: Greater than 30
[2019-12-10] MEDS: NICOTINE 14MG/24HR PATCH TRANSDERM SCH (08:27)
[2019-12-10] MEDS: hydrALAZINE HCL 50 MG TAB PO SCH ×3 (08:29→23:23)
[2019-12-10] MEDS: FUROSEMIDE 40 MG TAB PO SCH (08:29)
[2019-12-10] MEDS: HYDROCHLOROTHIAZIDE 25 MG TAB PO SCH (08:29)
[2019-12-10] MEDS: METOPROLOL TARTRATE 50 MG TAB PO SCH ×2 (08:29→19:46)
[2019-12-10] MEDS: COLCHICINE 0.6 MG EACH PO SCH ×2 (08:29→19:46)
[2019-12-10] MEDS: LOSARTAN 50 MG TAB PO SCH (08:29)
--- NOTE | 2019-12-10 09:50 | PN ---
PROGRESS NOTE This is a young 29-year-old gentleman who I saw him for the first time yesterday. He has mild to moderate-sized pericardial effusion, severely dilated cardiomyopathy and mild heart failure. His blood pressure control is quite poor. He is known to have hypertension, but has never taken medications. I am recommending that we discontinue amlodipine, add hydrochlorothiazide, increase Lopressor and continue colchicine for pericardial effusion and see how he does. Blood pressure today was 150/100, pulse rate is 198 per minute, JVD 1 cm, no carotid bruit. S1-S2 heard normally. Heart sounds are distant. Lungs revealed decent air entry. Abdomen is soft, lower extremities reveal diminished pulses. No edema. Overall prognosis is poor. Patient has probable nonischemic cardiomyopathy. We will first embolize him with medications, control blood pressure and consider cardiac cath as outpatient and refer to a tertiary center for his cardiomyopathy and heart failure. Prognosis remains guarded. The patient will be kept one more day and I will speak to his father, who is his nearest next of kin. MMOMIDL / GABEN: [id number] /
--- NOTE | 2019-12-10 10:46 | P.PN ---
Subjective Progress Note Date: 12/10/19 Principal diagnosis: This is a 29-year-old active gentleman who does not follow with a primary care physician on an outpatient basis. He has a previous medical history of hyperten mary, morbid obesity, current tobacco dependence, occasional marijuana use, family history of premature coronary artery disease. He was previously on anti- hypertensives but lost his health insurance and quit taking his medications. He presented to [facility] emergency room last night with complaints of shortness of breath and loose productive cough for approximately 2 weeks. Denies any fever, nausea, vomiting, chest pain. He does endorse occasional dizziness. He states he did take some Mucinex, he had a coughing fit and subsequently felt a little bit better. His father was concerned for Covid however, and he presented to [facility]. He was found to be hypertensive and sent to [facility] emergency room for further evaluation and treatment. Chest x-ray demonstrated new cardiomegaly, mild interstitial changes. Labs were essentially normal except d-dimer 4.77, ALT 57, troponins 1.98 trending down to 1.33, and BNP 5920. Procalcitonin was negative. Rapid coronavirus PCR was sent and was negative. Chest CTA was completed demonstrating no PE but large pericardial effusion was read by the radiologist. The patient was admitted for evaluation and treatment with consultation placed for Dr. De Los Santos from cardiothoracic surgery, cardiology, and infectious disease. An echocardiogram was ordered. On 12/10/2019 the patient was seen on follow-up on the third floor cardiac stepdown unit. He is awake, alert and oriented 3. He is in no acute distress. Denies any complaints of pain and states that his shortness of breath is much improved this morning. A 2-D echocardiogram was completed yesterday which shows an overall left ventricular systolic function to be severely impaired with an ejection fraction between 20 and 25%, right ventricular systolic function to be moderately impaired, left atrium severely dilated greater than 40 mL/m, mild to moderate mitral valve regurgitation, mild tricuspid valve regurgitation, inferior vena cava to be moderately dilated, a moderate generalized pericardial effusion with no evidence of cardiac tamponade. The patient reports that he has a known history of severely impaired ejection fraction which he was diagnosed with a year ago at a different hospital. Currently he is on room air with oxygen saturation is 96%. He remains hemodynamically stable and has been afebrile the last 24 hours. Remote telemetry showing sinus tachycardia heart rate 100 BPM. Laboratory results this morning show a WBC count 7.5, hemoglobin 15.3, d-dimer trending down 3.17, BUN 15, creatinine 0.83. He tested negative for covid 19. Objective - Vital Signs Vital signs: Vital Signs Temp 97.3 F L 12/10/19 08:00 Pulse 112 H 12/10/19 08:00 Resp 20 12/10/19 08:00 BP 148/103 12/10/19 08:00 Pulse Ox 96 12/10/19 08:00 Intake & Output 12/09/19 12/10/19 12/10/19 18:59 06:59 18:59 Intake Total 100 200 Output Total 350 Balance 100 -150 Weight 219.7 kg Intake: Oral 100 200 Output: Urine 350 Other: # Voids 2 2 1 - Exam This is a 29-year-old pleasant gentleman who is in no acute distress. Oxygen saturation is 96% on room air. Hemodynamically stable. - Constitutional General appearance: Present: cooperative, morbidly obese, no acute distress - EENT Eyes: Present: PERRLA. Absent: scleral icterus ENT: Present: hearing grossly normal, normal oropharynx. Absent: thrush - Neck Details: Neck is supple. No JVD. Neck: Absent: lymphadenopathy, stridor, thyromegaly - Respiratory Details: Lung sounds diminished throughout bilaterally. Respirations are symmetrical, non-labored. Currently on room air with oxygen saturation 96%. - Cardiovascular Details: Regular rhythm and tachycardic rate. S1 and S2 present, negative for S3, gallop or murmur. Remote telemetry showing sinus tachycardia heart rate 100. No edema present. - Gastrointestinal Gastrointestinal Comment(s): Abdomen is soft, nontender nondistended. Active bowel sounds present IN ALL QUADRANTS. MORBIDLY OBESE. NO GUARDING OR RIGIDITY. - Integumentary Integumentary Comment(s): Skin is warm and dry. No clubbing or cyanosis is present. No rash or abnormal pigmentation is present. - Neurologic Neurologic: Present: CNII-XII intact - Musculoskeletal Musculoskeletal: Present: gait normal, strength equal bilaterally - Psychiatric Psychiatric: Present: A&O x's 3, appropriate affect, intact judgment & insight - Allied health notes Allied health notes reviewed: nursing - Labs CBC & Chem 7: 12/09/19 06:36 12/09/19 06:36 Labs: Microbiology - Last 24 Hours (Table) 12/08/19 14:37 Blood Culture - Preliminary Blood No Growth after 24 hours Assessment and Plan Assessment: 1. Large pericardial effusion on CT scan, moderate pericardial effusion on 2-D echocardiogram without evidence of cardiac tamponade 2. Severely impaired left ventricular systolic function with an ejection fraction between 20 and 25% per 2-D echocardiogram 3. Hypertension 4. Current tobacco dependence 5. Morbid obesity 6. Family history of premature coronary artery disease Plan: 1. The patient is in no acute distress and reports his shortness of breath is much improved today. Continue medical management with controlling his blood pressure. 2. No surgical intervention is warranted at this time. 3. Medical management and other comorbidities per primary care service and card iology. 4. We will continue to follow the patient on an as-needed basis. Please feel free to call for any further questions. Time with Patient: Less than 30
--- NOTE | 2019-12-10 23:20 | PN ---
PROGRESS NOTE DATE OF SERVICE: 12/10/2019 REASON FOR FOLLOW UP: Pericarditis/pericardial effusion INTERVAL HISTORY: The patient is currently afebrile. He has been breathing slightly comfortably. He denies having any chest pain. No cough. No nausea, vomiting. No abdominal pain or diarrhea. PHYSICAL EXAMINATION: Blood pressure is 150/97 with a pulse of 92, temperature 98.1. He is 98% on room air. General description: The patient is a middle-aged male lying in bed in no distress. Respiratory system: Unlabored breathing, decreased breath sounds in the bases. No wheeze. HEART: S1, S2. Regular rate and rhythm. Abdomen soft, no tenderness. LABS: Hemoglobin 15.8, white count 7.5. BUN of 15, creatinine 0.83. DIAGNOSTIC IMPRESSION AND PLAN: Patient admitted to the hospital with shortness of breath which is likely multifactorial in this patient who did have a component of pericardial effusion, question of pericarditis, likely viral etiology. The patient to continue with the colchicine. No need for any antiviral and we will monitor his clinical course closely. MMODL / IJN: [id number] / MTDD
--- NOTE | 2019-12-11 00:10 | PN ---
PROGRESS NOTE 29-year-old white male with pericardial effusion, nonischemic CHF, possible viral induced. Cardiovascular S1-S2. Lungs scattered rhonchi and wheeze. HEMATOLOGY: Negative Homans. PSYCH fair mood and affect. Transmitted upper sounds. Ejection fraction is echo 20 to 25%. Vital signs pericardial effusion. No evidence of cardiac tamponade. Severely impaired ejection fraction. He is stable. Temp 97.3, pulse 112, respiratory 18-20, blood pressure 148/103, O2 96. White count 7.5, hemoglobin is 15.3, sodium 138, potassium 4.6. ASSESSMENT: 1. Large pericardial effusion. 2. Severely impaired left ventricular systolic function. 3. Hypertension. 4. Obesity. 5. Nicotine dependence. 6. No surgical intervention is needed. 7. Continue with medical treatment. 8. Follow up in the next 24-48 hours. 9. Continue current treatment. MMODL / IJN: [id number] /
[2019-12-11 07:36] LABS: African American GFR (CKD) >90 (>60 ml/min/1.73 sqM); Anion Gap 10 mmol/L; Blood Urea Nitrogen 17 mg/dL (9-20); Calcium 9.6 mg/dL (8.4-10.2); Carbon Dioxide 27 mmol/L (22-30); Chloride 102 mmol/L (98-107); Glucose 85 mg/dL (74-99); Non-African American GFR(CKD) >90 (>60 ml/min/1.73 sqM); Potassium 4.6 mmol/L (3.5-5.1); Sodium 139 mmol/L (137-145)
[2019-12-11] MEDS: hydrALAZINE HCL 50 MG TAB PO SCH ×3 (08:35→21:53)
[2019-12-11] MEDS: FUROSEMIDE 40 MG TAB PO SCH (08:36)
[2019-12-11] MEDS: LOSARTAN 50 MG TAB PO SCH (08:36)
[2019-12-11] MEDS: COLCHICINE 0.6 MG EACH PO SCH ×2 (08:37→21:54)
[2019-12-11] MEDS: METOPROLOL TARTRATE 50 MG TAB PO SCH ×2 (08:37→21:55)
[2019-12-11] MEDS: HYDROCHLOROTHIAZIDE 25 MG TAB PO SCH (08:38)
[2019-12-11] MEDS: HEPARIN SODIUM,PORCINE 5,000 UNIT/ML 1 ML VIAL SQ SCH ×2 (08:38→16:21)
--- NOTE | 2019-12-11 08:39 | PN ---
PROGRESS NOTE Mr. Duffy is in sinus rhythm, heart rate is better. He is resting comfortably. Breathing easier. However, his blood pressure control is not quite optimal, but there is improvement. I am recommending a repeat echo tomorrow as a followup study to see for pericardial effusion, more importantly, and also check LV function. We will do a free T4 and TSH check. Same medications increase activity and possible discharge tomorrow. He will require coronary angiography as an outpatient and after he is compliant with medications, I may refer him to a heart failure tertiary center. I discussed my thoughts in detail with the patient, spoke to his father by phone yesterday in detail. The patient's prognosis is guarded. However, he is doing better on current medical regimen. MMODL / IJN: [id number] /
[2019-12-11] MEDS: NICOTINE 14MG/24HR PATCH TRANSDERM SCH (08:44)
[2019-12-11 08:57] LABS: T4, Free (Free Thyroxine) 1.44 ng/dL (0.78-2.19)
--- NOTE | 2019-12-12 00:01 | PN ---
PROGRESS NOTE SUBJECTIVE: A 29-year-old white male remains on Colcrys for possible viral myocarditis, Lasix, Apresoline, HydroDIURIL, Cozaar, Lopressor, Habitrol for smoking, acute systolic CHF from viral pericardial effusion all being treated with cardiac medications, will watch him overnight. Possibly discharge him home tomorrow. CARDIOVASCULAR: S1, S2. LUNGS: Transmitted upper sounds. HEMATOLOGIC: 2+ edema. Temp 97.7, pulse 92, respiratory 16 to 18, blood pressure 120s over 69 to 90, O2 of 94% to 96% on room air. ASSESSMENT: 1. Systolic congestive heart failure. 2. Pericardial effusion. 3. Nicotine addiction. 4. Possible obstructive sleep apnea. Continue medications as mentioned above. Follow up in next 24 to 48 hours. MMODL / IJN: [id number] /
[2019-12-12] MEDS: HEPARIN SODIUM,PORCINE 5,000 UNIT/ML 1 ML VIAL SQ SCH ×2 (00:05→08:00)
--- NOTE | 2019-12-12 01:59 | PN ---
PROGRESS NOTE DATE OF SERVICE: 12/11/2019 REASON FOR FOLLOWUP: Pericarditis/pericardial effusion, possible viral. INTERVAL HISTORY: The patient is afebrile. He is breathing more comfortably. He denies having any chest pain. Occasional cough. No nausea, no vomiting. No abdominal pain, no diarrhea. PHYSICAL EXAMINATION: Blood pressure 126/69, with pulse of 92, temperature 97.7. He is 94% on room air. General description is a middle-aged male lying in bed in no distress. RESPIRATORY SYSTEM: Unlabored breathing, decreased intensity of breath sounds. No wheeze. HEART: S1, S2. Regular rate and rhythm. ABDOMEN: Soft, no tenderness. LABS: Hemoglobin is 15.3, white count 7.5. BUN of 17, creatinine 0.87. DIAGNOSTIC IMPRESSION/PLAN: Patient with pericarditis/pericardial effusion, likely viral etiology. Continue with symptomatic treatment and treatment with colchicine. No need for any antiviral or antibiotic therapy. Continue with supportive care. MMODL / IJN: [id number] /
[2019-12-12] MEDS ORDERED: LEVOTHYROXINE 75 MCG TAB PO SCH (06:30)
[2019-12-12 06:45] LABS: Magnesium 2.1 mg/dL (1.6-2.3); Potassium 4.6 mmol/L (3.5-5.1)
[2019-12-12] MEDS: HYDROCHLOROTHIAZIDE 25 MG TAB PO SCH (07:59)
[2019-12-12] MEDS: FUROSEMIDE 40 MG TAB PO SCH (07:59)
[2019-12-12] MEDS: METOPROLOL TARTRATE 50 MG TAB PO SCH (07:59)
[2019-12-12] MEDS: hydrALAZINE HCL 50 MG TAB PO SCH (07:59)
[2019-12-12] MEDS: LOSARTAN 50 MG TAB PO SCH (07:59)
[2019-12-12] MEDS: COLCHICINE 0.6 MG EACH PO SCH (07:59)
[2019-12-12] MEDS ORDERED: ISOSORBIDE MONONITRATE ER 60 MG TAB.ER.24H PO SCH (10:15)
--- NOTE | 2019-12-12 12:00 | ECHOF ---
Referral Reason:pericardial effusion and LV function MEASUREMENTS -------- HEIGHT: 193.0 cm WEIGHT: 216.8 kg BP: 137/99 IVSd: 1.5 cm (0.6 - 1.1) LVIDd: 7.6 cm (3.9 - 5.3) LVPWd: 1.5 cm (0.6 - 1.1) IVSs: 1.8 cm LVIDs: 6.3 cm LVPWs: 1.6 cm FINDINGS -------- Sinus rhythm. This was a technically difficult study with suboptimal views. Morbid Obesity Limited Study The left ventricle is severely dilated. Left ventricular wall thickness is normal. There is sever e global hypokinesis of LV . Overall left ventricular systolic function is severely impaired with, an EF between 25 - 30 %. 5.0mg of Lumason was utilized for enhancement of images There is a moderate, generalized pericardial effusion present. CONCLUSIONS -------- 1. Sinus rhythm. 2. This was a technically difficult study with suboptimal views. 3. Morbid Obesity 4. Limited Study 5. The left ventricle is severely dilated. 6. Left ventricular wall thickness is normal. 7. There is severe global hypokinesis of LV . 8. Overall left ventricular systolic function is severely impaired with, an EF between 25 - 30 %. 9. 5.0mg of Lumason was utilized for enhancement of images 10. There is a moderate, generalized pericardial effusion present. BULK SYSTEM OPERATOR: Angeles Maguire RDCS
[2019-12-12 12:50] VITALS: BP 133/81; PULSE 89; RESP 16; TEMP 98.1
[2019-12-12] MEDS: NICOTINE 14MG/24HR PATCH TRANSDERM SCH (14:01)
--- NOTE | 2019-12-12 14:12 | P.PN ---
Subjective Progress Note Date: 12/12/19 This is a 29-year-old morbidly obese gentleman who was admitted to the hospital with symptoms of shortness of breath with an upper respiratory type infection. He also was noted to have uncontrolled hypertension. Patient had a known history of hypertension but had not taking his medications recently. He also smokes one pack of cigarettes per day and uses marijuana. The patient was seen in consultation by Dr. Beth Beltran. Underwent an echocardiogram with Doppler study that revealed a reduced LV function, 25%, severely dilated left ventricle with global hypokinesia. The right ventricle was also enlarged with some impairment. with moderate sized general pericardial effusion. The patient was initiated on IV Lasix and has overall been diuresing well. His blood pressure today remains elevated at 139/100. We will add some Imdur to his medication regime to optimize blood pressure control. Repeat echocardiogram with Doppler study was ordered today to assess the pericardial effusion. If that shows some improvement the patient may be able to be discharged home today. Objective - Vital Signs Vital signs: Vital Signs Temp 98.1 F 12/12/19 12:49 Pulse 89 12/12/19 12:49 Resp 16 12/12/19 12:49 BP 133/81 12/12/19 12:49 Pulse Ox 96 12/12/19 12:49 Intake & Output 12/11/19 12/12/19 12/12/19 18:59 06:59 18:59 Intake Total 960 222 480 Output Total 800 0 Balance 160 222 480 Weight 217 kg Intake: Oral 960 222 480 Output: Urine 800 0 Stool 0 Other: Voiding Method Toilet # Voids 3 0 2 - Exam PHYSICAL EXAMINATION: GENERAL: 29-year-old gentleman in no acute distress at the time of my examination HEENT: Head is atraumatic, normocephalic. Pupils equal, round. Sclera anicteric. Conjunctiva are clear. Mucous membranes of the mouth are moist. Neck is supple. There is no elevated jugular venous pressure. No carotid bruit is heard. HEART EXAMINATION: Heart S1, S2 normal. No murmur or gallop heard. CHEST EXAMINATION: Lungs are clear to auscultation and precussion. No chest wall tenderness is noted on palpation or with deep breathing. ABDOMEN: Soft, obese, nontender. Bowel sounds are heard. No organomegaly noted. EXTREMITIES: 2+ peripheral pulses with no evidence of peripheral edema and no calf tenderness noted. NEUROLOGIC [patient is awake, alert and oriented 3 ] . - Labs CBC & Chem 7: 12/09/19 06:36 12/12/19 06:05 Labs: Microbiology - Last 24 Hours (Table) 12/08/19 14:37 Blood Culture - Preliminary Blood No Growth after 72 hours Assessment and Plan Plan: Assessment and plan #1 cardiomyopathy with documented ejection fraction of 20-25%, likely non ischemic, possibly a dilated cardiomyopathy #2 moderate size pericardial effusion, no evidence of tamponade not #3 uncontrolled hypertension #4 nicotine dependence #5 marijuana use #6 morbid obesity #7 prior episode of upper respiratory infection with possible perimyocarditis a year ago #8 COPD Plan We will add a dose of Imdur to his medication regime to optimize his blood pressure control. We will also repeat a limited echocardiogram with Doppler study and assess the pericardial effusion, if it seems to be lessened, patient should be able to be discharged home today to follow-up in the office post discharge with Dr. COSME Beltran. DNP note has been reviewed, I agree with a documented findings and plan of care. Patient was seen and examined.
--- NOTE | 2019-12-12 16:57 | P.PN ---
Progress Note - Text Progress Note Date: 12/12/19 REASON FOR FOLLOWUP: Pericarditis/pericardial effusion, possible viral. INTERVAL HISTORY: The patient remains to be afebrile. The patient is breathing more comfortably. He denies having any chest pain. Occasional cough. No nausea, no vomiting. No abdominal pain, no diarrhea. PHYSICAL EXAMINATION: Blood pressure 130/70, with pulse of 92, temperature 97.7. He is 94% on room air. General description is a middle-aged male lying in bed in no distress. RESPIRATORY SYSTEM: Unlabored breathing, decreased intensity of breath sounds. No wheeze. HEART: S1, S2. Regular rate and rhythm. ABDOMEN: Soft, no tenderness. LABS: Reviewed DIAGNOSTIC IMPRESSION/PLAN: Patient with pericarditis/pericardial effusion, likely viral etiology. Continue with symptomatic treatment and treatment with colchicine, to which the patient seemed to have clinically responded No need for any antiviral therapy, continue supportive care
--- NOTE | 2019-12-15 17:11 | P.DS ---
Providers Date of admission: 12/08/19 18:42 Expected date of discharge: 12/12/19 Attending physician: Yoan Collins Consults: 12/08/19 17:38 Consult Physician Urgent Consulting Provider: Nilesh De Los Santos Consult Reason/Comments: dyspnea, pericardial effusion Do you want consulting provider notified?: Already Contacted 12/08/19 18:54 Consult Physician Stat Consulting Provider: Asiya Beltran Consult Reason/Comments: dyspnea, pericardial effusion, elevated troponin Do you want consulting provider notified?: Yes 12/08/19 18:55 Consult Physician Urgent Consulting Provider: Aissatou Rushing Consult Reason/Comments: dyspnea, pericardial effusion, concern for COVID Do you want consulting provider notified?: Yes Primary care physician: Stated None Hospital Course: Final Diagnoses: moderate size pericardial effusion, no evidence of tamponade, possibly a viral. Pericarditis ruled out as per cardiology, in a patient with history of possible perimyocarditis a year ago. Systolic CHF with cardiomyopathy,EF 20-25%, likely nonischemic, possibly a dilated cardiomyopathy as per cardiology uncontrolled hypertension nicotine dependence marijuana use morbid obesity, BMI 58.2 COPD Possible obstructive sleep apnea This is a 29-year-old gentleman admitted with multiple medical issues. Evaluated by both cardiology, infectious disease, cardiothoracic surgery. No colchicine at DC, secondary to pericarditis ruled out as recommended per cardiology. No surgical intervention recommended as per cardiothoracic surgery. Cleared by cardiology, cardiothoracic surgery. Patient will be discharged home in a stable condition pending final DC recommendations/clearance from infectious disease. Please refer to history and physical/consult notes for specific details. The impression and plan of care has been dictated as directed. : I performed a history and examination of this patient, discussed the same with the dictator. I agree with the dictator's note ,documented as a scribe. Any additional findings or plans will be noted. Patient Condition at Discharge: Stable Plan - Discharge Summary New Discharge Prescriptions: New hydrALAZINE HCL [Apresoline] 100 mg PO TID #180 tab Losartan [Cozaar] 100 mg PO DAILY #60 tab Nicotine 14Mg/24Hr Patch [Habitrol] 1 patch TRANSDERM DAILY #30 patch Hydrochlorothiazide [Hydrodiuril] 25 mg PO DAILY #30 tab Isosorbide Mononitrate ER [Imdur] 60 mg PO DAILY #30 tab.er.24h Furosemide [Lasix] 40 mg PO DAILY #30 tab Metoprolol Tartrate [Lopressor] 100 mg PO BID #120 tab Levothyroxine Sodium [Synthroid] 75 mcg PO DAILY@0630 #30 tab Continue guaiFENesin [Mucinex] 1,200 mg PO Q12HR PRN PRN Reason: Congestion Discharge Medication List guaiFENesin [Mucinex] 1,200 mg PO Q12HR PRN 12/08/19 [History] Furosemide [Lasix] 40 mg PO DAILY #30 tab 12/12/19 [Rx] Hydrochlorothiazide [Hydrodiuril] 25 mg PO DAILY #30 tab 12/12/19 [Rx] Isosorbide Mononitrate ER [Imdur] 60 mg PO DAILY #30 tab.er.24h 12/12/19 [Rx] Levothyroxine Sodium [Synthroid] 75 mcg PO DAILY@0630 #30 tab 12/12/19 [Rx] Losartan [Cozaar] 100 mg PO DAILY #60 tab 12/12/19 [Rx] Metoprolol Tartrate [Lopressor] 100 mg PO BID #120 tab 12/12/19 [Rx] Nicotine 14Mg/24Hr Patch [Habitrol] 1 patch TRANSDERM DAILY #30 patch 12/12/19 [Rx] hydrALAZINE HCL [Apresoline] 100 mg PO TID #180 tab 12/12/19 [Rx] Follow up Appointment(s)/Referral(s): Asiya Beltran MD [STAFF PHYSICIAN] - 1 Week (Please call office for post hosptial care follow up/ diagnosis pericardial effusion, hypertension and low EF 25-30%) Yoan Collins MD [STAFF PHYSICIAN] - 3 Days (message left with answering service/ name and patient cell number and diagnosis/ Dr. Collins office to contact patient) Ambulatory/Diagnostic Orders: Complete Blood Count w/diff [LAB.AMB] Time Frame: 3 Days, Location: None Selected Patient Instructions/Handouts: Heart Failure (GEN), Heart Healthy Diet (GEN), Pericardial Effusion (GEN) Activity/Diet/Wound Care/Special Instructions: No colchicine at dc as per cardiology,no pericarditis. Pending final DC recommendations as per ID. Repeat echo outpatient with cardiology as advised. Discharge Disposition: HOME SELF-CARE
== END 2019-12-12 16:37 | disposition home or self-care (01) | DRG 314 ==
LOC: EC 14:21 → 3SCARD 18:42
PROVIDERS: ADMIT Family Medicine; ATTEND Family Medicine
DX: I30.1 Infective pericarditis (principal); I50.21 Acute systolic (congestive) heart failure; Z68.43 Body mass index [BMI] 50.0-59.9, adult; I42.0 Dilated cardiomyopathy; I11.0 Hypertensive heart disease with heart failure; E66.01 Morbid (severe) obesity due to excess calories; Z20.828 Contact with and (suspected) exposure to other viral communicable diseases; B97.89 Other viral agents as the cause of diseases classified elsewhere; T50.916A Underdosing of multiple unspecified drugs, medicaments and biological substances, initial encounter; I08.1 Rheumatic disorders of both mitral and tricuspid valves; J44.9 Chronic obstructive pulmonary disease, unspecified; G47.30 Sleep apnea, unspecified; J32.9 Chronic sinusitis, unspecified; F41.9 Anxiety disorder, unspecified; F17.210 Nicotine dependence, cigarettes, uncomplicated; Z71.6 Tobacco abuse counseling; Z79.890 Hormone replacement therapy; Z79.899 Other long term (current) drug therapy; Z91.120 Patient's intentional underdosing of medication regimen due to financial hardship; Y63.6 Underdosing and nonadministration of necessary drug, medicament or biological substance; Z91.09 Other allergy status, other than to drugs and biological substances; Z82.49 Family history of ischemic heart disease and other diseases of the circulatory system
CPT/HCPCS: 36415; 71045; 71275; 80048; 80053; 80061; 82728; 83036; 83605; 83615; 83735; 83880; 84132; 84145; 84439; 84443; 84484; 85025; 85379; 85610; 85730; 86140; 87040; 87502; 87635; 93005; 93306; 93308; 96374; 99285